=== PATIENT | male | born 1985 | race Caucasian/White ===

== ENCOUNTER 2017-02-03 02:22 | Emergency (ER) | payer SELFPAY ==
[2017-02-03 06:30] VITALS: BP 110/55
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
== END 2017-02-03 06:00 ==
LOC: FB.ED 02:22
DX: S06.0X9A Concussion with loss of consciousness of unspecified duration, initial encounter (principal); F10.129 Alcohol abuse with intoxication, unspecified; S01.511A Laceration without foreign body of lip, initial encounter; R93.0 Abnormal findings on diagnostic imaging of skull and head, not elsewhere classified; Y90.0 Blood alcohol level of less than 20 mg/100 ml
CPT/HCPCS: 36415; 70450; 72125; 80053; 80305; 85025; 85610; 85730; 99285; G0480; 99284